=== PATIENT | male | born 1965 | race Caucasian/White ===

== ENCOUNTER 2022-11-09 15:41 | Observation (INO) | payer OTHER ==
[2022-11-09 16:41] VITALS: BMI 26.6
[2022-11-09] MEDS ORDERED: ACETAMINOPHEN 1000 MG/100 ML BAG IVPB ONE (17:09)
[2022-11-09] MEDS ORDERED: SODIUM CHLORIDE 1,000 ML IV STA (17:23)
[2022-11-09] MEDS ORDERED: ACETAMINOPHEN INJECTION 100 ML IVPB ONE (17:44)
[2022-11-09 17:51] LABS: VENOUS O2 SATURATION 64.6 % (70-80); VENOUS PCO2 45.8 mmHg (38-52); VENOUS PH 7.382 (7.310-7.410)
[2022-11-09 18:00] LABS: BASO % 0.5 % (0-2.0); EOS % 2.1 % (0-4.5); HEMOGLOBIN 15.1 GM/dL (11.7-16.9); LYMPH % 45.7 % (8-40); MCH 31.8 pg (25.7-33.7); MCHC 34.4 g/dl (32.0-35.9); MEAN CELL VOLUME 92.4 fl (80-96); MEAN PLT VOLUME 9.1 fl (7.5-11.1); MONO % 9.6 % (3.8-10.2); NEUT % 42.1 % (42.8-82.8); PLATELET COUNT 150 10^3/uL (134-434); RBC 4.76 M/mm3 (4.00-5.60); RDW 14.1 % (11.9-15.9); URINE APPEARANCE CLEAR; URINE BILIRUBIN NEGATIVE (NEGATIVE); URINE COLOR YELLOW; URINE GLUCOSE (UA) 3+ (NEGATIVE); URINE KETONE NEGATIVE (NEGATIVE); URINE LEUK ESTERASE NEGATIVE (NEGATIVE); URINE NITRITE NEGATIVE (NEGATIVE); URINE PROTEIN NEGATIVE (NEGATIVE); URINE UROBILINOGEN 0.2 mg/dL (0.2-1.0); WHITE BLOOD COUNT 6.8 K/mm3 (4.0-10.0)
[2022-11-09 18:09] LABS: INR 0.98 (0.83-1.09); PROTHROMBIN TIME (PATIENT) 11.4 SEC (9.7-13.0)
[2022-11-09 18:11] LABS: CHLORIDE 105 mmol/L (98-107); POTASSIUM 4.7 mmol/L (3.5-5.1); SODIUM 139 mmol/L (136-145)
[2022-11-09 18:12] LABS: ACTIVATED PTT 26.8 SECONDS (25.2-36.5)
[2022-11-09 18:13] LABS: CALCIUM 8.6 mg/dL (8.5-10.1)
[2022-11-09 18:14] LABS: ANION GAP 8 MMOL/L (8-16); BLOOD UREA NITROGEN 13.2 mg/dL (7-18); CO2 26 mmol/L (21-32)
[2022-11-09 18:17] LABS: CREATININE 1.1 mg/dL (0.55-1.3); SGOT/AST 33 U/L (15-37); SGPT/ALT 52 U/L (13-61)
[2022-11-09 18:19] LABS: BILIRUBIN,TOTAL 0.5 mg/dL (0.2-1); TOT PROT 6.5 g/dl (6.4-8.2)
[2022-11-09 18:20] LABS: ALK PHOS 118 U/L (45-117)
[2022-11-09 18:49] LABS: GLUCOSE,RANDOM 476 mg/dL (74-106)
[2022-11-09] MEDS ORDERED: DOCUSATE SODIUM 100 MG CAPSULE (FP) PO PRN (23:35)
[2022-11-09] MEDS ORDERED: ACETAMINOPHEN 1000 MG/100 ML BAG IVPB PRN (23:39)
[2022-11-10 08:29] LABS: BASO % 0.6 % (0-2.0); EOS % 2.8 % (0-4.5); HEMATOCRIT 44.4 % (35.4-49); HEMOGLOBIN 15.1 GM/dL (11.7-16.9); LYMPH % 47.8 % (8-40); MCH 31.5 pg (25.7-33.7); MEAN CELL VOLUME 92.6 fl (80-96); MONO % 7.9 % (3.8-10.2); NEUT % 40.9 % (42.8-82.8); PLATELET COUNT 143 10^3/uL (134-434); RBC 4.79 M/mm3 (4.00-5.60); RDW 14.4 % (11.9-15.9); WHITE BLOOD COUNT 7.1 K/mm3 (4.0-10.0)
[2022-11-10 08:42] LABS: POTASSIUM 4.8 mmol/L (3.5-5.1)
[2022-11-10 08:44] LABS: CALCIUM 8.2 mg/dL (8.5-10.1)
[2022-11-10 08:45] LABS: BLOOD UREA NITROGEN 11.1 mg/dL (7-18); MAGNESIUM 1.9 mg/dL (1.8-2.4)
[2022-11-10 08:48] LABS: CREATININE 0.8 mg/dL (0.55-1.3); PHOSPHOROUS 2.5 mg/dL (2.5-4.9)
[2022-11-10] MEDS ORDERED: ASPIRIN COATED 81 MG TABLET.EC ONE (09:57)
[2022-11-10] MEDS ORDERED: INSULIN (LEVEMIR) 100 UNITS/ML UNITS SQ SCH (10:00)
[2022-11-10] MEDS: INSULIN SLIDING SCALE (NOVOLOG) 1 VIAL SQ SCH ×4 (10:41→23:53)
[2022-11-10] MEDS: ASPIRIN COATED 81 MG TABLET.EC PO SCH (10:42)
[2022-11-10 12:31] LABS: CHOLESTEROL 187 mg/dL (50-200)
[2022-11-10 12:32] LABS: LDL CHOLESTEROL (ONLY SJRH) 94 mg/dL (5-100)
[2022-11-10 12:33] LABS: HDL CHOLESTEROL 36 mg/dL (40-60)
[2022-11-10] MEDS ORDERED: INSULIN (NOVOLOG) ASPART 100 UNITS/ML 10ML VIAL ONE (18:46)
[2022-11-10] MEDS ORDERED: ACETAMINOPHEN 325 MG TABLET (FP) PO PRN (23:35)
[2022-11-10] MEDS: INSULIN (LEVEMIR) 100 UNITS/ML UNITS SQ SCH (23:52)
[2022-11-10] MEDS: ATORVASTATIN CA 40 MG TABLET (FP) PO SCH (23:54)
[2022-11-11] MEDS: INSULIN (LEVEMIR) 100 UNITS/ML UNITS SQ SCH ×2 (06:51→22:55)
[2022-11-11] MEDS: INSULIN SLIDING SCALE (NOVOLOG) 1 VIAL SQ SCH ×4 (06:52→22:57)
[2022-11-11] MEDS: ASPIRIN COATED 81 MG TABLET.EC PO SCH (10:04)
[2022-11-11] MEDS: GEMFIBROZIL 600 MG TABLET (FP) PO SCH (17:37)
[2022-11-11] MEDS: ATORVASTATIN CA 40 MG TABLET (FP) PO SCH (22:06)
[2022-11-12] MEDS: INSULIN (LEVEMIR) 100 UNITS/ML UNITS SQ SCH ×2 (06:54→22:31)
[2022-11-12] MEDS: GEMFIBROZIL 600 MG TABLET (FP) PO SCH ×2 (06:54→17:57)
[2022-11-12] MEDS: INSULIN SLIDING SCALE (NOVOLOG) 1 VIAL SQ SCH ×4 (06:55→22:30)
[2022-11-12] MEDS: ASPIRIN COATED 81 MG TABLET.EC PO SCH (09:42)
[2022-11-12] MEDS: INSULIN (NOVOLOG) ASPART 100 UNITS/ML 10ML VIAL SQ SCH (17:58)
[2022-11-12] MEDS ORDERED: INSULIN (NOVOLOG) ASPART 100 UNITS/ML 10ML VIAL ONE (21:59)
[2022-11-12] MEDS: ATORVASTATIN CA 40 MG TABLET (FP) PO SCH (22:30)
[2022-11-12] MEDS ORDERED: INSULIN (LEVEMIR) 100 UNITS/ML UNITS SQ SCH (22:46)
[2022-11-13 00:32] VITALS: TEMP 98.2
[2022-11-13] MEDS ORDERED: INSULIN (NOVOLOG) ASPART 100 UNITS/ML 10ML VIAL ONE (05:57)
[2022-11-13] MEDS: GEMFIBROZIL 600 MG TABLET (FP) PO SCH ×2 (06:07→16:55)
[2022-11-13] MEDS: INSULIN (NOVOLOG) ASPART 100 UNITS/ML 10ML VIAL SQ SCH ×3 (06:08→16:55)
[2022-11-13] MEDS: INSULIN SLIDING SCALE (NOVOLOG) 1 VIAL SQ SCH ×3 (06:08→16:57)
[2022-11-13 07:57] LABS: POTASSIUM 4.9 mmol/L (3.5-5.1)
[2022-11-13 08:10] LABS: ALBUMIN 2.9 g/dl (3.4-5.0); BLOOD UREA NITROGEN 17.6 mg/dL (7-18); CALCIUM 8.9 mg/dL (8.5-10.1)
[2022-11-13 08:13] LABS: CREATININE 0.7 mg/dL (0.55-1.3)
[2022-11-13 08:15] LABS: BILIRUBIN,TOTAL 0.6 mg/dL (0.2-1); TOT PROT 6.6 g/dl (6.4-8.2)
[2022-11-13] MEDS ORDERED: REGADENOSON 0.4 MG/5 ML PRE-FILLED SYRINGE IVPUSH ONE ×2 (10:04→10:15)
[2022-11-13] MEDS: ASPIRIN COATED 81 MG TABLET.EC PO SCH (12:17)
[2022-11-13 14:26] VITALS: BP 114/76; PULSE 85; RESP 18
[2022-11-13] MEDS ORDERED: metoPROLOL SUCCINATE 25 MG TAB.SR.24H (FP) PO SCH (16:45)
== END 2022-11-13 18:01 | disposition home or self-care (01) ==
LOC: JER 15:41 → JERBED 21:12 → INTOOBSV 21:32 → JERBED 21:32 → UNDOADMOB 21:32 → J4W 11-10 18:10
PROVIDERS: ADMIT Internal Medicine; ATTEND Family Medicine
CPT/HCPCS: 36415; 70450-TC; 71045-TC-FY; 72125-TC; 72128-TC; 72131-TC; 73030-TC-RT-FY; 78452-TC; 80048; 80053; 80061; 81003; 82010; 82803; 82962; 83036; 83735; 84100; 84132; 84484; 85025; 85610; 85730; 86850; 86900; 86901; 87077; 87086; 93005; 93010; 93017; 93306-TC; 93880-TC; 99285-25; A9502; G0378; J2785